=== PATIENT | male | born 1955 | race American Indian/Alaskan Native ===

== ENCOUNTER 2020-01-20 11:49 | Observation (INO) | payer MEDICARE, OTHER ==
--- NOTE | 2020-01-20 12:31 | XRay Report ---
CHEST 1 VIEW 01/20/2020 12:06 PM INDICATION / CLINICAL INFORMATION: Chest Pain. COMPARISON: None available. FINDINGS: SUPPORT DEVICES: None. HEART / MEDIASTINUM: No significant abnormality. LUNGS / PLEURA: The lungs are hyperexpanded and clear with emphysematous changes. No significant pleu ral effusion. No pneumothorax. ADDITIONAL FINDINGS: No significant additional findings. IMPRESSION: 1. No acute abnormality of the chest. 2. Emphysema. Signer Name: Phil Lam MD Signed: 01/20/2020 12:26 PM Workstation Name: [id number]
[2020-01-20 12:38] LABS: Basophils % (Auto) 0.7 % (0.0-1.8); Eosinophils % (Auto) 0.1 % (0.0-4.3); Hematocrit 38.1 % (35.5-45.6); Hemoglobin 12.9 gm/dl (11.8-15.2); Lymphocytes # (Auto) 1.8 K/mm3 (1.2-5.4); Lymphocytes % (Auto) 36.2 % (13.4-35.0); Mean Corpuscular HGB Conc 34 % (32-34); Mean Corpuscular Volume 95 fl (84-94); Monocytes # (Auto) 0.8 K/mm3 (0.0-0.8); Monocytes % (Auto) 14.9 % (0.0-7.3); Platelet Count 178 K/mm3 (140-440); Red Blood Count 4.01 M/mm3 (3.65-5.03)
[2020-01-20] MEDS ORDERED: SODIUM CHLORIDE 0.9% 1000 ML 1,000 ML IV ONE (12:41)
[2020-01-20] MEDS ORDERED: SODIUM CHLORIDE 0.9% 1000 ML 1,000 ML ONE (12:43)
[2020-01-20 12:58] LABS: Calcium 7.8 mg/dL (8.4-10.2)
--- NOTE | 2020-01-20 13:35 | Emergency Department Report ---
HPI - General Chief Complaint: Chest Pain Time Seen by Provider: 01/20/20 12:15 - HPI HPI: 64-year-old -[place] male presents to the emergency department via EMS from home after the patient had a syncopal episode while on the toilet having a bowel movement. Patient says that prior to passing out he felt dizzy with some chest pressure, nausea without vomiting and then "the next thing I know I was on the floor." EMS found the patient to have a pulse ox of 85% on room air. He was given a full dose aspirin and placed on 2 L via nasal cannula. At the time of my examination he is awake and alert. He has a past medical history of COPD but is not oxygen dependent. He also has a history of hypertension. He is a tobacco smoker but denies any illicit drug use. His primary care physician is Dr. Thomas Edwards. 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 ED Past Medical Hx - Past Medical History Previous Medical History?: Yes Hx Hypertension: Yes Hx COPD: Yes Additional medical history: atelectasis - Surgical History Past Surgical History?: Yes Additional Surgical History: R index finger, - Social History Smoking Status: Former Smoker Substance Use Type: None - Medications Home Medications: Home Medications Medication Instructions Recorded Confirmed Last Taken Type Famotidine [Pepcid] 20 mg PO DAILY #30 tablet 05/03/14 01/20/20 Unknown Rx Docusate Sodium [Colace CAP] 100 mg PO BID PRN #20 capsule 06/19/15 01/20/20 Unknown Rx Albuterol Sulfate [Proair 90 mcg IH PRN 01/20/20 01/20/20 Unknown History Respiclick] Gabapentin 300 mg PO DAILY 01/20/20 01/20/20 Unknown History lisinopriL [Zestril TAB] 10 mg PO DAILY 01/20/20 01/20/20 Unknown History ED Review of Systems ROS: Stated complaint: CHEST PAIN,SYNCOPAL EPISODE Other details as noted in HPI Comment: All other systems reviewed and negative Constitutional: denies: chills, fever Eyes: denies: eye pain ENT: denies: ear pain, throat pain Respiratory: shortness of breath. denies: cough Cardiovascular: chest pain, syncope Gastrointestinal: denies: abdominal pain, vomiting Genitourinary: denies: dysuria, discharge Musculoskeletal: denies: back pain, arthralgia Skin: denies: rash, lesions Neurological: denies: headache, weakness Physical Exam - Physical Exam Vital Signs: Vital Signs 01/20/20 01/20/20 01/20/20 11:56 12:07 13:17 Temperature 98.3 F Pulse Rate 81 76 79 Respiratory 14 18 20 Rate Blood Pressure 104/53 Blood Pressure 92/52 99/50 [Left] O2 Sat by Pulse 99 96 98 Oximetry Physical Exam: GENERAL: The patient is well-developed well-nourished. HENT: Normocephalic. Atraumatic. Patient has moist mucous membranes. EYES: Extraocular motions are intact. Pupils equal reactive to light bilaterally. NECK: Supple. Trachea is midline. CHEST/LUNGS: Clear to auscultation. There is no respiratory distress noted. HEART/CARDIOVASCULAR: Regular. There is no tachycardia. There is no murmur. ABDOMEN: Abdomen is soft, nontender. Patient has normal bowel sounds. There is no abdominal distention. SKIN: Skin is warm and dry. NEURO: The patient is awake, alert, and oriented. The patient is cooperative. The patient has no focal neurologic deficits. Normal speech. Cranial nerves II through XII grossly intact. No facial asymmetry. MUSCULOSKELETAL: There is no tenderness or deformity. There is no limitation range of motion. There is no evidence of acute injury. ED Course Vital Signs 01/20/20 01/20/20 01/20/20 11:56 12:07 13:17 Temperature 98.3 F Pulse Rate 81 76 79 Respiratory 14 18 20 Rate Blood Pressure 104/53 Blood Pressure 92/52 99/50 [Left] O2 Sat by Pulse 99 96 98 Oximetry ED Medical Decision Making - Lab Data Result diagrams: 01/20/20 12:26 01/20/20 12:26 - EKG Data -: EKG Interpreted by Me EKG shows normal: sinus rhythm (PVCs), axis, intervals, QRS complexes, ST-T waves Rate: normal - EKG Data When compared to previous EKG there are: previous EKG unavailable Interpretation: normal EKG (with PVCS) - Radiology Data Radiology results: report reviewed, image reviewed interpreted by me: Chest x-ray shows some hyperinflation of the lungs and flattening of the diaphragms consistent with emphysema. No pneumonia or pleural effusions. CT HEAD WITHOUT CONTRAST INDICATION / CLINICAL INFORMATION: Dizzy, Syncope. TECHNIQUE: All CT scans at this location are performed using CT dose reduction for ALARA by means of automated exposure control. COMPARISON: None available. FINDINGS: HEMORRHAGE: No evidence of intracranial hemorrhage or extra-axial fluid collection. EXTRA-AXIAL SPACES: Cortical sulci, sylvian fissures and basilar cisterns have an unremarkable appearance. VENTRICULAR SYSTEM: The ventricular system is of normal size and configuration. CEREBRAL PARENCHYMA: A left thalamic chronic lacunar infarct. There is no indication of recent infarction. MIDLINE SHIFT OR HERNIATION: There is no mass effect. CEREBELLUM / BRAINSTEM: Brainstem and cerebellum have an unremarkable appearance. INTRACRANIAL VESSELS:No abnormalities are identified on this noncontrast head CT. ORBITS: visualized portions of the orbits have an unremarkable appearance. SOFT TISSUES of HEAD: No significant abnormality. CALVARIUM: Evaluation of bone windows reveals no abnormalities. PARANASAL SINUSES / MASTOID AIR CELLS: Paranasal sinuses are free from inflammatory mucosal disease. Mastoid air cells are normally pneumatized. ADDITIONAL FINDINGS: None. IMPRESSION: 1. No acute intracranial abnormality. NUCLEAR MEDICINE VENTILATION/PERFUSION LUNG SCAN INDICATION: SOB, elevated dimer. TECHNIQUE: 9.8 mCi of Xe-133 were given by inhalation. 4.9 mCi of Tc-99m MAA were given by IV. COMPARISON: Chest radiograph dated 01/20/2020. FINDINGS: VENTILATION: There are large bilateral ventilation defects, left greater than right. PERFUSION: Bilateral perfusion defects match the ventilation defects. ADDITIONAL FINDINGS: None. IMPRESSION: 1. Low probability for pulmonary embolism. - Medical Decision Making This is a 64-year-old male who had some dizziness and chest pain and then passed out in the bathroom while having a bowel movement. He then woke up and continued to have some chest discomfort. At the time of my examination the patient does not appear in any acute distress. However he does have some hypotension that got as low as a systolic of about 75. Patient also had some hypoxemia with EMS of about 85% on room air that improves with oxygen saturation. The patient's hypotension did improve with IV fluid resuscitation. EKG did not show any ST elevation NM. CT of the head without contrast did not show any acute bleed, shift, mass, ischemia, or any other acute process. Patient's labs were mostly unremarkable except for some mild renal insufficiency and an elevated d-dimer level. For this reason a ventilation/perfusion scan was done that resulted as low probability for a pulmonary embolism. The patient will be admitted to the hospital for further evaluation and treatment and was accepted for admission by the hospitalist, Dr. Maguire. - Differential Diagnosis Vasovagal, NM, PE, dysrhythmia, TIA Critical Care Time: No Critical care attestation.: If time is entered above; I have spent that time in minutes in the direct care of this critically ill patient, excluding procedure time. ED Disposition Clinical Impression: Acute chest pain, Hypoxia Syncope Qualifiers: Syncope type: vasovagal syncope Qualified Code(s): R55 - Syncope and collapse Disposition: OP ADMIT IP TO THIS HOSP Is pt being admited?: Yes Condition: Serious Time of Disposition: 14:19
--- NOTE | 2020-01-20 14:17 | Nuclear Medicine Report ---
NUCLEAR MEDICINE VENTILATION/PERFUSION LUNG SCAN INDICATION: SOB, elevated dimer. TECHNIQUE: 9.8 mCi of Xe-133 were given by inhalation. 4.9 mCi of Tc-99m MAA were given by IV. COMPARISON: Chest radiograph dated 01/20/2020. FINDINGS: VENTILATION: There are large bilateral ventilation defects, left greater than right. PERFUSION: Bilateral perfusion defects match the ventilation defects. ADDITIONAL FINDINGS: None. IMPRESSION: 1. Low probability for pulmonary embolism. Signer Name: Phil Lam MD Signed: 01/20/2020 2:13 PM Workstation Name: [id number]
[2020-01-20] MEDS ORDERED: IPRATROPIUM/ALBUTEROL SULFATE 3 ML AMPUL.NEB IH ONE (14:30)
--- NOTE | 2020-01-20 14:35 | History and Physical Report ---
History of Present Illness Chief complaint: I was sitting on the toilet and just passed out History of present illness: 64 YO Male with HTN, COPD, Nicotine Dependence presents to ED for evaluation. Patient states that he has been feeling weak over the past 3 days but has just been "pushing through". Patient states that he went to the restroom the day and while attempting to have a bowel movement he experienced a sudden onset of nausea with concomitant chest discomfort and subsequently lost consciousness. EMS notified and upon arrival the patient was found to be in distress with a pulse oximetry of 85% on room air. Patient placed on supplemental oxygen and transported to [facility] for further evaluation and care. Patient seen and evaluated in the emergency department. Lab and imaging studies reviewed. Patient found to have acute kidney injury, acidosis, and syncope suspected secondary to hypotension with blood pressure of 87/52 due to Valsalva. Patient also found to have hyponatremia. Patient placed in observation status and admitted to telemetry for further evaluation and care due to increased risk of decompensation. Patient treated with IV fluid resuscitation therapy and placed on supplemental oxygen with improvement and oxygen saturation. No prior admission for review. All medication listed at time of admission have been reconciled. Patient denies fever, chills, chest pain, palpitations, productive cough, unilateral leg swelling, prolonged travel/immobility, individual/family history of DVT/PE/bleeding/blood clotting disorder. Advanced care planning conducted in ED. Past History Past Medical History: COPD, hyperthyroidism, other (See HPI) Past Surgical History: Other (Right index finger for surgery) Social history: single, smoking Family history: hypertension Medications and Allergies Allergies Allergy/AdvReac Type Severity Reaction Status Date / Time No Known Allergies Allergy Verified 06/19/15 14:28 Home Medications Medication Instructions Recorded Confirmed Last Taken Type Famotidine [Pepcid] 20 mg PO DAILY #30 tablet 05/03/14 Unknown Rx Docusate Sodium [Colace CAP] 100 mg PO BID PRN #20 capsule 06/19/15 Unknown Rx Review of Systems Constitutional: weakness, no weight loss, no weight gain, no fever, no chills Ears, nose, mouth and throat: no ear pain, no ear discharge, no tinnitis, no decreased hearing, no nose pain, no nasal congestion Cardiovascular: syncope, no chest pain, no orthopnea, no palpitations, no rapid/irregular heart beat Respiratory: no cough, no cough with sputum, no excessive sputum, no hemoptysis Gastrointestinal: nausea, no abdominal pain, no vomiting, no diarrhea, no constipation Genitourinary Male: no hematuria, no flank pain, no discharge Rectal: no pain, no incontinence, no bleeding Musculoskeletal: no neck stiffness, no neck pain, no shooting arm pain, no arm numbness/tingling Integumentary: no rash, no pruritis, no redness, no sores, no wounds Neurological: no transient paralysis, no paralysis, no weakness, no parathesias, no seizures, no syncope Psychiatric: no anxiety, no memory loss, no sleep disturbances, no hypersomnia, no change in appetite, no suicidal ideation Endocrine: no cold intolerance, no heat intolerance, no polyphagia, no excessive thirst, no polydipsia, no polyuria, no nocturia Hematologic/Lymphatic: no easy bruising, no easy bleeding, no lymphadenopathy, no lymphedema Exam - Constitutional Vitals: Temp Pulse Resp BP Pulse Ox 98.3 F 75 18 107/59 98 01/20/20 11:56 01/20/20 14:20 01/20/20 14:20 01/20/20 14:20 01/20/20 14:20 General appearance: Present: mild distress, cachectic - EENT Eyes: Present: PERRL ENT: hearing intact, clear oral mucosa - Neck Neck: Present: supple, normal ROM - Respiratory Respiratory effort: normal Respiratory: bilateral: CTA - Cardiovascular Heart Sounds: Present: S1 & S2. Absent: rub, click - Extremities Extremities: pulses symmetrical, No edema Peripheral Pulses: within normal limits - Abdominal General gastrointestinal: Present: soft, non-tender, non-distended, normal bowel sounds Male genitourinary: Present: normal - Integumentary Integumentary: Present: clear, warm, dry - Musculoskeletal Musculoskeletal: gait normal, strength equal bilaterally - Psychiatric Psychiatric: appropriate mood/affect, intact judgment & insight - Neurologic Neurologic: CNII-XII intact, moves all extremities Results - Labs CBC & Chem 7: 01/20/20 12:26 01/20/20 12:26 Labs: Abnormal lab results 01/20/20 01/20/20 01/20/20 Range/Units 12:26 12:26 12:26 MCV 95 H (84-94) fl Lymph % (Auto) 36.2 H (13.4-35.0) % [place] % (Auto) 14.9 H (0.0-7.3) % D-Dimer 907.82 H (0-234) ng/mlDDU Sodium 133 L (137-145) mmol/L Chloride 97.6 L (98-107) mmol/L Carbon Dioxide 19 L (22-30) mmol/L BUN 26 H (9-20) mg/dL Creatinine 1.7 H (0.8-1.5) mg/dL Glucose 128 H (75-100) mg/dL Calcium 7.8 L (8.4-10.2) mg/dL Assessment and Plan - Patient Problems (1) Acute kidney injury (QUAN) with acute tubular necrosis (ATN) Current Visit: Yes Status: Acute Plan to address problem: IV fluid resuscitation therapy, CBC, BMP, monitor urine output every shift, avoid nephrotoxic agents, repeat BMP to monitor serum creatinine in a.m. (2) Severe malnutrition Current Visit: Yes Status: Acute Plan to address problem: Dietary supplementation, and encourage increased oral intake. (3) Syncope Current Visit: Yes Status: Acute Qualifiers: Syncope type: vasovagal syncope Qualified Code(s): R55 - Syncope and collapse Plan to address problem: Supportive care, IV fluid resuscitation therapy, monitor blood pressure every shift, carotid Doppler. (4) Metabolic acidosis Current Visit: Yes Status: Acute Plan to address problem: IV fluid resuscitation therapy, BMP, repeat BMP in a.m. (5) Hyponatremia syndrome Current Visit: Yes Status: Acute Plan to address problem: IV fluid resuscitation therapy, BMP, repeat BMP to monitor serum sodium. (6) Elevated d-dimer Current Visit: Yes Status: Acute Plan to address problem: VQ scan, negative. No evidence of PE. (7) DVT prophylaxis Current Visit: Yes Status: Acute Plan to address problem: SCD to bilateral lower extremities while in bed, prophylactic heparin.
[2020-01-20] MEDS ORDERED: ACETAMINOPHEN 325 MG TAB PO PRN (14:37)
[2020-01-20] MEDS ORDERED: ONDANSETRON 4 MG/2 ML INJ IV PRN (14:37)
--- NOTE | 2020-01-20 15:30 | Cat Scan Report ---
CT HEAD WITHOUT CONTRAST INDICATION / CLINICAL INFORMATION: Dizzy, Syncope. TECHNIQUE: All CT scans at this location are performed using CT dose reduction for ALARA by means of automated e xposure control. COMPARISON: None available. FINDINGS: HEMORRHAGE: No evidence of intracranial hemorrhage or extra-axial fluid collection. EXTRA-AXIAL SPACES: Cortical sulci, sylvian fissures and basilar cisterns have an unremarkable appear ance. VENTRICULAR SYSTEM: The ventricular system is of normal size and configuration. CEREBRAL PARENCHYMA: A left thalamic chronic lacunar infarct. There is no indication of recent infarc tion. MIDLINE SHIFT OR HERNIATION: There is no mass effect. CEREBELLUM / BRAINSTEM: Brainstem and cerebellum have an unremarkable appearance. INTRACRANIAL VESSELS:No abnormalities are identified on this noncontrast head CT. ORBITS: visualized portions of the orbits have an unremarkable appearance. SOFT TISSUES of HEAD: No significant abnormality. CALVARIUM: Evaluation of bone windows reveals no abnormalities. PARANASAL SINUSES / MASTOID AIR CELLS: Paranasal sinuses are free from inflammatory mucosal disease. Mastoid air cells are normally pneumatized. ADDITIONAL FINDINGS: None. IMPRESSION: 1. No acute intracranial abnormality. Signer Name: Daryn Brody MD Signed: 01/20/2020 3:25 PM Workstation Name: [id number]
--- NOTE | 2020-01-20 18:01 | Vascular Lab Report ---
"DUPLEX DOPPLER ULTRASOUND CAROTID, BILATERAL INDICATION: syncope. FINDINGS: RIGHT CAROTID: Small amount of calcified atherosclerotic plaque. Right ICA peak systolic velocity: 100 cm/sec. Right Vertebral Artery: Antegrade flow. LEFT CAROTID: Small amount of calcified atherosclerotic plaque. Left ICA peak systolic velocity: 118 cm/sec. Left Vertebral Artery: Antegrade flow. IMPRESSION: 1. Right Internal Carotid Artery: Less than 50% diameter stenosis. 2. Left Internal Carotid Artery: Less than 50% diameter stenosis. Velocity criteria are extrapolated from diameter data as defined by the Society of Radiologists in [place] [facility] Consensus Conference, Radiology 2003; 229;340-346. Degree of Stenosis (%) || ICA PSV (cm/sec) || Plaque estimate (%) || ICA/CCA PSV Ratio Normal <125 None <2.0 <50 <125 <50 <2.0 50-69 125-230 50 2.0-4.0 70 but less than 100 >230 50 >4.0 Near occlusion High, low, or none visible variable Total occlusion None visible; no lumen N/A Signer Name: Justin Salinas MD Signed: 01/20/2020 5:57 PM Workstation Name: [email or web address]"
[2020-01-20] MEDS ORDERED: ALBUTEROL 2.5 MG/3 ML NEBU IH PRN (22:48)
[2020-01-21 07:42] LABS: BUN/Creatinine Ratio 17; Blood Urea Nitrogen 15 mg/dL (9-20); Hemolysis Index 2
--- NOTE | 2020-01-21 16:45 | Progress Note ---
Assessment and Plan Assessment and plan: (1) Acute kidney injury (QUAN) with acute tubular necrosis (ATN) Current Visit: Yes Status: Acute Plan to address problem: IV fluid resuscitation therapy, CBC, BMP, monitor urine output every shift, avoid nephrotoxic agents, repeat BMP to monitor serum creatinine in a.m. (2) Severe malnutrition Current Visit: Yes Status: Acute Plan to address problem: Dietary supplementation, and encourage increased oral intake. (3) Syncope Current Visit: Yes Status: Acute Qualifiers: Syncope type: vasovagal syncope Qualified Code(s): R55 - Syncope and collapse Plan to address problem: Supportive care, IV fluid resuscitation therapy, monitor blood pressure every shift, carotid Doppler. (4) Metabolic acidosis Current Visit: Yes Status: Acute Plan to address problem: IV fluid resuscitation therapy, BMP, repeat BMP in a.m. (5) Hyponatremia syndrome Current Visit: Yes Status: Acute Plan to address problem: IV fluid resuscitation therapy, BMP, repeat BMP to monitor serum sodium. (6) Elevated d-dimer Current Visit: Yes Status: Acute Plan to address problem: VQ scan, negative. No evidence of PE. (7) DVT prophylaxis Current Visit: Yes Status: Acute Plan to address problem: SCD to bilateral lower extremities while in bed, prophylactic heparin. Hospitalist Physical - Constitutional Vitals: Temp Pulse Resp BP Pulse Ox 98.4 F 86 18 121/65 100 01/21/20 04:28 01/21/20 15:00 01/21/20 10:33 01/21/20 04:28 01/21/20 15:00 General appearance: Present: mild distress, cachectic Results - Labs CBC & Chem 7: 01/20/20 12:26 01/21/20 06:23 Labs: Laboratory Last Values WBC 5.1 K/mm3 (4.5-11.0) 01/20/20 12: RBC 4.01 M/mm3 (3.65-5.03) 01/20/20 12:26 Hgb 12.9 gm/dl (11.8-15.2) 01/20/20 12:26 Hct 38.1 % (35.5-45.6) 01/20/20 12:26 MCV 95 fl (84-94) H 01/20/20 12:26 MCH 32 pg (28-32) 01/20/20 12:26 MCHC 34 % (32-34) 01/20/20 12: RDW 15.0 % (13.2-15.2) 01/20/20 12: Plt Count 178 K/mm3 (140-440) 01/20/20 12: Lymph % (Auto) 36.2 % (13.4-35.0) H 01/20/20 12: [place] % (Auto) 14.9 % (0.0-7.3) H 01/20/20 12: Eos % (Auto) 0.1 % (0.0-4.3) 01/20/20 12: Baso % (Auto) 0.7 % (0.0-1.8) 01/20/20 12: Lymph # 1.8 K/mm3 (1.2-5.4) 01/20/20 12: [place] # 0.8 K/mm3 (0.0-0.8) 01/20/20 12: Eos # 0.0 K/mm3 (0.0-0.4) 01/20/20 12: Baso # 0.0 K/mm3 (0.0-0.1) 01/20/20 12: Seg Neutrophils % 48.1 % (40.0-70.0) 01/20/20 12: Seg Neutrophils # 2.4 K/mm3 (1.8-7.7) 01/20/20 12: D-Dimer 907.82 ng/mlDDU (0-234) H 01/20/20 12: Sodium 135 mmol/L (137-145) L 01/21/20 06:23 Potassium 3.7 mmol/L (3.6-5.0) 01/21/20 06:23 Chloride 101.1 mmol/L (98-107) 01/21/20 06:23 Carbon Dioxide 20 mmol/L (22-30) L 01/21/20 06:23 Anion Gap 18 mmol/L 01/21/20 06:23 BUN 15 mg/dL (9-20) 01/21/20 06:23 Creatinine 0.9 mg/dL (0.8-1.5) 01/21/20 06:23 Estimated GFR > 60 ml/min 01/21/20 06:23 BUN/Creatinine Ratio 17 % 01/21/20 06:23 Glucose 100 mg/dL (75-100) 01/21/20 06:23 Calcium 8.0 mg/dL (8.4-10.2) L 01/21/20 06:23 Troponin T 0.013 ng/mL (0.00-0.029) 01/20/20 12:26 NT-Pro-B Natriuret Pep 40.42 pg/mL (0-900) 01/20/20 12:26 Active Medications - Current Medications Current Medications: Generic Name Dose Route Start Last Admin Trade Name Freq PRN Reason Stop Dose Admin Acetaminophen 650 mg 01/20/20 14:37 Tylenol PO Q4H PRN Pain MILD(1-3)/Fever >100.5/CAST Albuterol 2.5 mg 01/20/20 22:48 01/21/20 10:32 Proventil IH 2.5 mg Q4HRT PRN Administration Shortness Of Breath Albuterol/Ipratropium 1 ampul 01/21/20 20:00 Duoneb *Not For Prn Use* IH BIDRT RORY Ondansetron HCl 4 mg 01/20/20 14:37 Zofran IV Q8H PRN Nausea And Vomiting Sodium Chloride 10 ml 01/20/20 22:00 01/21/20 11:44 Sodium Chloride Flush Syringe 10 Ml IV 10 ml BID RORY Administration Sodium Chloride 10 ml 01/20/20 14:37 Sodium Chloride Flush Syringe 10 Ml IV PRN PRN LINE FLUSH Nutrition/Malnutrition Assess - Dietary Evaluation Nutrition/Malnutrition Findings: Nutrition Notes Start: 01/21/20 14: 02 Freq: Status: Active Protocol: Document 01/21/20 14:02 LM (Rec: 01/21/20 14:13 LM [id number]) Nutrition Notes 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 Pt stated he has been skipping meals and not eating like he should since he has gotten older. Observed clavicle, orbital, and temporal wasting. Pt had no food preferences but would like Ensure. Burn Absent Trauma Absent GI Symptoms None Current % PO Good (75-100%) Minimum of two criteria Yes Energy Intake (non-severe) <75% Estimated Energy Requirement >7 days Body Fat Depletion Moderate depletion (severe) Muscle Mass Moderate Depletion (severe) #1 Nutrition Diagnosis Malnutrition Etiology decreased appetite secondary to aging, COPD, nicotine dependence As Evidenced by Signs and Symptoms clavicle/ temporal/ orbital wasting and <75% EER > 7 days Is patient on ventilator? No Is Patient Ambulatory and/or Out of Bed Yes REE-([facility]-ambulatory/OOB) [ 1902.875 [id number]] Kcal/Kg value to use for calculation 39 Approximate Energy Requirements Using 2336 kcal/Kg Calculation Used for Recommendations Kcal/kg Additional Notes Protein: 72-90g (1.2-1.5g/kg) Fluid: 1 ml/kcal Nutrition Intervention Change Diet Order: Continue cardiac Add Supplement/Snack (indicate name/kcal Ensure Enlive chocolate TID /protein ) Provides kCal: 1,050 Provides Protein (gm) 60 Goal #1 Meet at least 80% of energy and protein needs Goal #2 weight gain/maintenance Anticipated Discharge Needs: Cardiac diet with ONS Follow-Up By: 01/23/20 Additional Comments F/U for intakes
--- NOTE | 2020-01-21 19:14 | Discharge Summary ---
Providers - Providers Date of Admission: 01/20/20 14:37 Date of discharge: 01/21/20 Attending physician: TRACEY DELCID Hospitalization Condition: Serious Disposition: DC-01 TO HOME OR SELFCARE Time spent for discharge: 32 min Core Measure Documentation - Palliative Care Palliative Care/ Comfort Measures: Not Applicable - Core Measures Any of the following diagnoses?: none Exam - Constitutional Vitals: Temp Pulse Resp BP Pulse Ox 98.4 F 86 18 121/65 100 01/21/20 04:28 01/21/20 15:00 01/21/20 10:33 01/21/20 04:28 01/21/20 15:00 Plan Activity: advance as tolerated, fall precautions Diet: other (cardiac diet) Additional Instructions: Advised to see [facility] 1 [facility]. Advised to see [place] neurologist if you have repeated syncope, or near syncope or dizzy episodes. Hold lisinopril, as your blood pressures are in the lower range. Hold gabapentin for 2 wks, resume if needed after you see PMD Follow up with: [facility] [Other] - 7 Days
[2020-01-21 19:27] VITALS: BP 109/64
[2020-01-21] MEDS ORDERED: IPRATROPIUM/ALBUTEROL SULFATE 3 ML AMPUL.NEB IH SCH (20:00)
== END 2020-01-21 20:03 | disposition home or self-care (01) ==
LOC: ED 11:49 → 4A 14:37
PROVIDERS: ADMIT Internal Medicine; ATTEND Internal Medicine
DX: N17.9 Acute kidney failure, unspecified (principal); R55 Syncope and collapse; E87.2 Acidosis; E43 Unspecified severe protein-calorie malnutrition; E87.1 Hypo-osmolality and hyponatremia; R74.8 Abnormal levels of other serum enzymes; R07.89 Other chest pain; R09.02 Hypoxemia; J44.9 Chronic obstructive pulmonary disease, unspecified; E05.90 Thyrotoxicosis, unspecified without thyrotoxic crisis or storm; F17.200 Nicotine dependence, unspecified, uncomplicated; Z68.1 Body mass index [BMI] 19.9 or less, adult; Z98.890 Other specified postprocedural states
CPT/HCPCS: 36415; 70450; 71045; 78582; 80048; 83880; 84484; 85025; 85379; 93005; 93010; 93880; 94640; 94760; 96360; 99285; A9540; A9558; G0378; J7030

== ENCOUNTER 2020-09-05 15:33 | Emergency (ER) | payer SELFPAY ==
--- NOTE | 2020-09-05 16:15 | XRay Report ---
Chest single view INDICATION: Dyspnea IMPRESSION: Prominent consolidation identified within the medial aspect of the right lower lung. Ther e is mild hilar prominence bilaterally concerning for underlying adenopathy. Lungs are hyperexpanded. Signer Name: Torito Morgan MD Signed: 09/05/2020 4:10 PM Workstation Name: [id number]
--- NOTE | 2020-09-05 19:39 | Emergency Department Report ---
ED Shortness of Breath HPI - General Chief Complaint: Dyspnea/Respdistress Stated Complaint: CANDIDA Time Seen by Provider: 09/05/20 19:22 Source: patient, family Mode of arrival: Ambulatory Limitations: No Limitations - History of Present Illness Initial Comments: 65-year-old male with history of COPD presents to ED with shortness of breath for couple of weeks, worse today. Patient states he has been out of his inhaler, currently waiting for it to arrive from the [place]. Patient states he feels like if he just had his inhaler he would be fine. Patient denies any fever or cough. Reports continued tobacco use. MD Complaint: shortness of breath -: days(s) Severity: mild Consistency: intermittent Improves With: rest Worsens With: exertion Known History Of: COPD - Related Data Home Oxygen Therapy: No Home Medications Medication Instructions Recorded Confirmed Last Taken Albuterol Sulfate [Proair 90 mcg IH PRN 01/20/20 01/20/20 Unknown Respiclick] Gabapentin 300 mg PO DAILY 01/20/20 01/20/20 Unknown Previous Rx's Medication Instructions Recorded Last Taken Type Famotidine [Pepcid] 20 mg PO DAILY #30 tablet 05/03/14 Unknown Rx Docusate Sodium [Colace CAP] 100 mg PO BID PRN #20 capsule 06/19/15 Unknown Rx Albuterol Sulfate [Proventil Hfa] 2 puff IH Q4HR PRN #1 hfa.aer.ad 09/05/20 Unknown Rx Azithromycin [Zithromax TAB] 250 mg PO QDAY 4 Days #4 tablet 09/05/20 Unknown Rx amLODIPine 10 mg PO DAILY #30 tab 09/05/20 Unknown Rx predniSONE [Deltasone] 50 mg PO QDAY #5 tab 09/05/20 Unknown Rx Allergies Allergy/AdvReac Type Severity Reaction Status Date / Time No Known Allergies Allergy Verified 06/19/15 14:28 ED Review of Systems ROS: Stated complaint: CANDIDA Other details as noted in HPI Comment: All other systems reviewed and negative Constitutional: denies: chills, fever Respiratory: shortness of breath. denies: cough Cardiovascular: denies: chest pain ED Past Medical Hx - Past Medical History Previous Medical History?: Yes Hx Hypertension: Yes Hx COPD: Yes Additional medical history: atelectasis - Surgical History Past Surgical History?: Yes Additional Surgical History: R index finger, - Social History Smoking Status: Current Every Day Smoker Substance Use Type: Alcohol, Marijuana, Prescribed - Medications Home Medications: Home Medications Medication Instructions Recorded Confirmed Last Taken Type Famotidine [Pepcid] 20 mg PO DAILY #30 tablet 05/03/14 01/20/20 Unknown Rx Docusate Sodium [Colace CAP] 100 mg PO BID PRN #20 capsule 06/19/15 01/20/20 Unknown Rx Albuterol Sulfate [Proair 90 mcg IH PRN 01/20/20 01/20/20 Unknown History Respiclick] Gabapentin 300 mg PO DAILY 01/20/20 01/20/20 Unknown History Albuterol Sulfate [Proventil Hfa] 2 puff IH Q4HR PRN #1 hfa.aer.ad 09/05/20 Unknown Rx Azithromycin [Zithromax TAB] 250 mg PO QDAY 4 Days #4 tablet 09/05/20 Unknown Rx amLODIPine 10 mg PO DAILY #30 tab 09/05/20 Unknown Rx predniSONE [Deltasone] 50 mg PO QDAY #5 tab 09/05/20 Unknown Rx ED Physical Exam - General Limitations: No Limitations General appearance: alert, in no apparent distress - Head Head exam: Present: atraumatic, normocephalic - Eye Eye exam: Present: normal appearance, EOMI - ENT ENT exam: Present: mucous membranes moist - Neck Neck exam: Present: normal inspection - Respiratory Respiratory exam: Present: normal lung sounds bilaterally. Absent: respiratory distress - Cardiovascular Cardiovascular Exam: Present: regular rate, normal rhythm - GI/Abdominal GI/Abdominal exam: Present: soft. Absent: distended, tenderness - Extremities Exam Extremities exam: Present: normal inspection - Neurological Exam Neurological exam: Present: alert, oriented X3 - Psychiatric Psychiatric exam: Present: normal affect, normal mood - Skin Skin exam: Present: warm, dry, intact, normal color ED Course Vital Signs 09/05/20 09/05/20 09/05/20 15:37 19:53 20:41 Temperature 97.3 F L 97.9 F Pulse Rate 86 72 Respiratory 14 20 20 Rate Blood Pressure 188/101 Blood Pressure 181/98 [Right] O2 Sat by Pulse 93 94 94 Oximetry 09/05/20 23:36 Temperature Pulse Rate 74 Respiratory 20 Rate Blood Pressure Blood Pressure 172/97 [Right] O2 Sat by Pulse 97 Oximetry ED Medical Decision Making - Lab Data Result diagrams: 09/05/20 20:12 09/05/20 20:12 - EKG Data -: EKG Interpreted by Me EKG shows normal: sinus rhythm, axis, intervals, QRS complexes, ST-T waves Rate: normal - EKG Data Interpretation: no acute changes - Radiology Data Radiology results: report reviewed, image reviewed - Medical Decision Making 65-year-old male presents to ED with shortness of breath for several weeks, worsening today. O2 sats are normal, patient is not in respiratory distress. Lungs are clear. Chest x-ray shows right middle lobe infiltrate. It does not have a COVID-like appearance. Patient given Rocephin and azithromycin here in ED. Patient reports he was taken off the blood pressure medication approximately 6 months ago. However, blood pressure is elevated again here in the ED. he seems to be asymptomatic, denying any chest pain, headache, dizziness. Patient does not require admission at this time. Prescription will be given for Z-Henry, steroids, albuterol, and amlodipine. Outpatient follow-up advised. Return precautions given. Patient also advised to obtain outpatient COVID-19 testing. - Differential Diagnosis COPD, pneumonia, COVID-19 Critical care attestation.: If time is entered above; I have spent that time in minutes in the direct care of this critically ill patient, excluding procedure time. ED Disposition Clinical Impression: Pneumonia, COPD (chronic obstructive pulmonary disease), Uncontrolled hyperte nsion Disposition: DC- TO HOME OR SELFCARE Is pt being admited?: No Condition: Stable Instructions: COVID-19, Chronic Obstructive Pulmonary Disease (ED), Community- acquired Pneumonia (ED), Hypertension (ED) Additional Instructions: Your chest x-ray shows an area of pneumonia in your right lung. This does not look like the typical pneumonia associated with COVID-19, however, it is still advised that you obtain outpatient testing for COVID-19. Your oxygen level toda y is normal. Please take medication as prescribed. Return to the ER if your symptoms worsen or do not improve. Prescriptions: amLODIPine 10 mg PO DAILY #30 tab predniSONE [Deltasone] 50 mg PO QDAY #5 tab Albuterol Sulfate [Proventil Hfa] 2 puff IH Q4HR PRN #1 hfa.aer.ad PRN Reason: Wheezing Azithromycin [Zithromax TAB] 250 mg PO QDAY 4 Days #4 tablet Referrals: PRIMARY CAREMD [Primary Care Provider] - 3-5 Days [facility] [Provider Group] - 3-5 Days IRENE FAIRCHILD MD [Staff Physician] - 3-5 Days Time of Disposition: 21:16
[2020-09-05 20:34] LABS: Hematocrit 41.5 % (35.5-45.6); Hemoglobin 13.7 gm/dl (11.8-15.2); Mean Corpuscular HGB Conc 33 % (32-34); Mean Corpuscular Volume 95 fl (84-94); Platelet Count 236 K/mm3 (140-440); Red Blood Count 4.39 M/mm3 (3.65-5.03); Red Cell Distribution Width 14.7 % (13.2-15.2)
[2020-09-05 20:42] LABS: BUN/Creatinine Ratio 16; Blood Urea Nitrogen 14 mg/dL (9-20); Calcium 9.3 mg/dL (8.4-10.2); Hemolysis Index 4
[2020-09-05] MEDS ORDERED: LIDOCAINE-MPF (1%) 10 MG/1 ML VIAL 5 ML INFILTRATI ONE (21:03)
[2020-09-05] MEDS ORDERED: AZITHROMYCIN 250 MG TAB PO ONE (21:03)
[2020-09-05] MEDS ORDERED: predniSONE 20 MG TAB PO ONE (21:04)
[2020-09-05 21:27] LABS: Basophils % (Manual) 0 % (0.0-1.8); Eosinophils % (Manual) 0 % (0.0-4.3); Total Cells Counted 100
[2020-09-05 21:28] LABS: Anisocytosis Few; Hypochromasia Few
[2020-09-05 23:36] VITALS: BP 172/97
== END 2020-09-05 23:38 | disposition home or self-care (01) ==
LOC: ED 15:33
DX: J44.9 Chronic obstructive pulmonary disease, unspecified (principal); J18.9 Pneumonia, unspecified organism; I10 Essential (primary) hypertension; F17.200 Nicotine dependence, unspecified, uncomplicated; F12.10 Cannabis abuse, uncomplicated; Z79.899 Other long term (current) drug therapy
CPT/HCPCS: 36415; 71045; 80048; 85007; 85025; 93005; 96372; 99284; J0696; J7512